=== PATIENT | female | born 1980 | race Caucasian/White ===

== ENCOUNTER → 2017-03-09 | Day surgery (SDC) | payer OTHER ==
[~2017-03-09] MED LIST: PROPOFOL 20 ML ONE
[2017-03-09 12:41] VITALS: BMI 25.0
[2017-03-09 14:58] VITALS: TEMP 97.7
[2017-03-09 16:04] VITALS: BP 105/70; PULSE 70
--- NOTE | 2017-03-12 08:18 | PATH ---
Surgical Pathology Report Patient Name: JAMIE MOHAN I. [facility]. Rec. #: [id number] /Age/Gender: 1980 (Age: 36) / F Account: [id number] Location: [facility]-ENDOSCOPY Taken: 03/09/2017 Received: 03/10/2017 Reported: 03/12/2017 Physicians: Alfie Dominguez M.D. Specimen(s) Received A: BX DUODENUM B: BX STOMACH C: BX ILEUM Clinical History Iron deficiency anemia Gastritis, hiatal hernia, grade 2 hemorrhoids, abnormal ileum Final Diagnosis A. DUODENUM, BIOPSY: DUODENAL MUCOSA WITH NO PATHOLOGIC CHANGES. NO HISTOLOGIC EVIDENCE OF GLUTEN SENSITIVE ENTEROPATHY (CELIAC SPRUE) IDENTIFIED. B. STOMACH, BIOPSY: SEVERE CHRONIC ACTIVE GASTRITIS. IMMUNOSTAIN FOR H. PYLORI ISNEGATIVE. C. ILEUM, BIOPSY: COLONIC TYPE MUCOSA WITH LYMPHOID AGGREGATE WITHIN LAMINA PROPRIA. NO ACTIVE INFLAMMATION, GRANULOMATA, OR DYSPLASIA IDENTIFIED. Comment: Recommend correlation with clinical findings and follow up as clinically indicated. Electronically Signed Brandon Ventura M.D. Gross Description A. Received in formalin, labeled "biopsy duodenum" are 3 eaton, irregular portions of soft tissue ranging from 0.2-0.4 cm. in greatest dimension. The specimens are submitted in toto in one cassette. B. Received in formalin, labeled "biopsy stomach" are 2 eaton, irregular portions of soft tissue measuring 0.2 and 0.5 cm. in greatest dimension. The specimens are submitted in toto in one cassette. C. Received in formalin, labeled "biopsy ileum" is a eaton, irregular portion of soft tissue measuring 0.3 cm. in greatest dimension. The specimen is submitted in toto in one cassette. /03/10/201703/10/2017
== END | disposition home or self-care (01) ==
LOC: JASU-ENDO 13:31 → MERGE 14:00
PROVIDERS: ATTEND Internal Medicine Gastroenterology
PROC: 0DB68ZX Excision of Stomach, Via Natural or Artificial Opening Endoscopic, Diagnostic (ICD-10-PCS; 2017-03-09)
PROC: 0DBB8ZX Excision of Ileum, Via Natural or Artificial Opening Endoscopic, Diagnostic (ICD-10-PCS; principal; 2017-03-09 14:00)
DX: D50.9 Iron deficiency anemia, unspecified (principal); K64.8 Other hemorrhoids; K63.89 Other specified diseases of intestine; K29.60 Other gastritis without bleeding; K44.9 Diaphragmatic hernia without obstruction or gangrene
CPT/HCPCS: 84703; 88305-TC; 88342-TC

== ENCOUNTER 2021-04-23 11:57 | Emergency (ER) | payer OTHER ==
[2021-04-23 12:12] VITALS: BMI 25.5
[2021-04-23 14:19] LABS: BASO % 0.6 % (0-2.0); EOS % 0.7 % (0-4.5); HEMOGLOBIN 10.4 GM/dL (10.7-15.3); LYMPH % 24.1 % (8-40); MCH 23.5 pg (25.7-33.7); MCHC 31.4 g/dl (32.0-36.0); MEAN CELL VOLUME 74.9 fl (80-96); MEAN PLT VOLUME 9.9 fl (7.5-11.1); MONO % 7.3 % (3.8-10.2); NEUT % 67.3 % (42.8-82.8); PLATELET COUNT 263 10^3/uL (134-434); RBC 4.41 M/mm3 (3.60-5.2); RDW 19.9 % (11.6-15.6)
[2021-04-23 14:35] LABS: CALCIUM 10.1 mg/dL (8.5-10.1)
[2021-04-23 14:36] LABS: BLOOD UREA NITROGEN 6.5 mg/dL (7-18); MAGNESIUM 2.3 mg/dL (1.8-2.4)
[2021-04-23 14:40] LABS: CREATININE 0.7 mg/dL (0.55-1.3)
[2021-04-23 16:23] VITALS: BP 117/73; PULSE 68; TEMP 98.3
== END 2021-04-23 16:23 | disposition home or self-care (01) ==
LOC: JER 11:57
DX: R42 Dizziness and giddiness (principal)
CPT/HCPCS: 36415; 80048; 82272; 82962; 83735; 84703; 85025; 93005; 93010; 99285-25

== ENCOUNTER 2022-10-26 19:36 | Emergency (ER) | payer OTHER ==
[2022-10-26 20:03] VITALS: BP 104/68; PULSE 92; RESP 19; TEMP 98.1; BMI 26.6
[2022-10-26] MEDS ORDERED: METHOCARBAMOL 500 MG TABLET PO ONE (21:27)
[2022-10-26] MEDS ORDERED: LIDOCAINE 5% TOPICAL PATCH TP ONE (21:27)
[2022-10-26] MEDS ORDERED: IBUPROFEN 600 MG TABLET (FP) PO ONE ×2 (21:27→21:41)
[2022-10-26] MEDS ORDERED: LIDOCAINE 5% TOPICAL PATCH ONE (21:41)
[2022-10-26] MEDS ORDERED: METHOCARBAMOL 500 MG TABLET ONE (21:42)
[2022-10-26] MEDS ORDERED: LIDOCAINE PATCH REMOVAL MC SCH (22:00)
== END 2022-10-26 22:58 | disposition home or self-care (01) ==
LOC: JERFT 19:36
DX: S13.4XXA Sprain of ligaments of cervical spine, initial encounter (principal); M62.838 Other muscle spasm; V49.50XA Passenger injured in collision with unspecified motor vehicles in traffic accident, initial encounter
CPT/HCPCS: 72040-TC; 72070-TC-FY; 99284-25